=== PATIENT | female | born 1995 ===

== ENCOUNTER 2018-01-16 01:57 | Emergency (ER) | payer SELFPAY ==
[2018-01-16 03:04] LABS: BASO % 0.4 % (0.0-2.0); EOS # 0.3 K/uL (0.0-0.7); EOS % 2.9 % (0.0-4.0); HEMOGLOBIN 13.7 g/dL (11.0-16.0); LYMPH # 3.2 K/uL (1.0-4.3); LYMPH % 34.9 % (20.0-40.0); MEAN CELL VOLUME 89.9 fL (81.0-99.0); MEAN CORPUSCULAR HEMOGLOBIN 31.2 pg (27.0-31.0); MEAN CORPUSCULAR HGB CONC 34.7 g/dL (33.0-37.0); MEAN PLATELET VOLUME 7.8 fL (7.2-11.7); MONO # 0.5 K/uL (0.0-0.8); MONO % 5.7 % (0.0-10.0); NEUT # 5.1 K/uL (1.8-7.0); NEUT % 56.1 % (50.0-75.0); NRBC % 0.1 % (0.0-2.0); RBC 4.38 Mil/uL (3.80-5.20); WHITE BLOOD COUNT 9.1 K/uL (4.8-10.8)
[2018-01-16 03:12] LABS: ALB/GLOB RATIO 1.4 (1.0-2.1); ALBUMIN 4.7 g/dL (3.5-5.0); ALT/SGPT 20 U/L (9-52); AST/SGOT 21 U/L (14-36); BLOOD UREA NITROGEN 8 mg/dL (7-17); CALCIUM 9.5 mg/dl (8.6-10.4); GFR NON-AFRICAN AMERICAN > 60
[2018-01-16] MEDS ORDERED: Potassium Chloride 20 mEq ER Tab PO ONE ×3 (03:16→03:19)
--- NOTE | 2018-01-16 03:23 | C.PDOC ---
History Of Present Illness 22 year old female is brought to the ED by EMS for evaluation of apparent SOB, chest tightness. Patient reported to EMS she had an argument with her boyfriend at home. Patient was hyperventilating on EMS arrival however now states that she experienced SOB and chest pain while cleaning at home, patient admits to drinking only 1 beer. Patient reports PMHX of a questionable heart condition that she is unsure of, patient states [place] and nothing has been done. Patient is not taking any medications. Patient denies fever, chills, visual changes, headache, dizziness, weakness, numbness, palpitations, diaphoresis. No recent prolonged travel, no OCP use, no recent immobilization. Time Seen by Provider: 01/16/18 02:08 Chief Complaint (Nursing): Chest Pain History Per: Patient, EMS History/Exam Limitations: no limitations Onset/Duration Of Symptoms: Hrs Current Symptoms Are (Timing): Still Present Quality: Tightness Associated Symptoms: Dyspnea Recent travel outside of the [place]: No Additional History Per: Patient, EMS Past Medical History Reviewed: Historical Data, Nursing Documentation, Vital Signs Vital Signs: Last Vital Signs Temp 97.9 F 01/16/18 02:00 Pulse 116 H 01/16/18 02:00 Resp 20 01/16/18 02:00 BP 109/86 01/16/18 02:00 Pulse Ox 97 01/16/18 02:00 - Medical History PMH: No Chronic Diseases Surgical History: No Surg Hx Family History: States: Unknown Family Hx - Social History Hx Alcohol Use: Yes Hx Substance Use: No - Immunization History Hx Tetanus Toxoid Vaccination: No Hx Influenza Vaccination: No Hx Pneumococcal Vaccination: No Review Of Systems Constitutional: Negative for: Fever, Chills Cardiovascular: Positive for: Chest Pain. Negative for: Palpitations, Light Headedness Respiratory: Negative for: Shortness of Breath Gastrointestinal: Negative for: Nausea, Vomiting Skin: Negative for: Rash Neurological: Negative for: Weakness, Numbness, Headache, Dizziness Physical Exam - Physical Exam Appears: Non-toxic, No Acute Distress, Other (AOB) Skin: Normal Color, Warm, Dry Head: Atraumatic, Normacephalic Eye(s): bilateral: Normal Inspection, PERRL Neck: Normal ROM, Supple Chest: Symmetrical Cardiovascular: Rhythm Regular (tachycardic) Respiratory: Normal Breath Sounds, No Rales, No Rhonchi, No Wheezing Gastrointestinal/Abdominal: Soft, No Tenderness, No Guarding, No Rebound Extremity: Normal ROM, No Tenderness, No Swelling Neurological/Psych: Oriented x3, Normal Speech, Normal Cognition Gait: Steady ED Course And Treatment - Laboratory Results Result Diagrams: 01/16/18 03:01 01/16/18 03:01 ECG: Interpreted By Me, Viewed By Me ECG Rhythm: Sinus Tachycardia Interpretation Of ECG: no acute ST/T wave abnormalities Rate From EC (BPM) O2 Sat by Pulse Oximetry: 97 (ON RA) Pulse Ox Interpretation: Normal - Radiology CXR: Interpreted by Me, Viewed By Me CXR Interpretation: Yes: No Acute Disease. No: Infiltrates - CT Scan/US CT chest Other Rad Studies (CT/US): Read By Radiologist, Radiology Report Reviewed CT/US Interpretation: CTA OF THE CHEST WITH IV CONTRAST. CLINICAL HISTORY: Pain. TECHNIQUE: Axial and reformatted sagittal and coronal images of the chest obtained after bolus IV contrast administration. FINDINGS: Normal enhancement of the main pulmonary artery and right and left pulmonary arteries. Normal enhancement of the bilateral peripheral pulmonary arteries. There is no demonstrated pulmonary embolism. Normal thoracic aorta and visualized great vessels. There is no demonstrated aortic dissection. Normal heart and perica rdium. Normal mediastinum. Normal hilar regions. Normal visualized trachea and bronchi. The lungs are well expanded. Normal pulmonary parenchyma. Normal pleura. Normal chest wall structures. Normal osseous structures. Normal visualized upper abdomen. IMPRESSION: Normal CTA chest examination, without a demonstrated pulmonary embolism or arterial dissection. . Electronically signed on Jan 16, 2018 6:38:19 AM EDT by: Lincoln Long M.D., Certified by ABR, MSK, Neuroradiology Progress Note: Plan: - Labs. - EKG. - CXR. - Potassium PO. Patient removed her IV access so potassium was replaced PO. Pt with elevated dimer, chest pain, SOB, will order CTA chest. Labs and CT ordered, K 2.9 replaced. CTA negative for PE, pt improved, VSS, no distress. Advised fruits high in K+. 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 - Scribe Statement The provider has reviewed the documentation as recorded by the Scribe Russel Saravia All medical record entries made by the Scribe were at my direction and personally dictated by me. I have reviewed the chart and agree that the record accurately reflects my personal performance of the history, physical exam, medical decision making, and the department course for this patient. I have also personally directed, reviewed, and agree with the discharge instructions and disposition.
[2018-01-16 05:14] VITALS: PULSE 97
[2018-01-16] MEDS ORDERED: Iodixanol 320 MG/ML 100 ML BOTTLE IV ONE (05:41)
[2018-01-16 06:16] VITALS: BP 108/71; RESP 16; TEMP 97.8
[2018-01-16 06:40] VITALS: O2SAT 97
--- NOTE | 2018-01-16 09:17 | RAD ---
Date of service: 01/16/2018 PROCEDURE: CHEST RADIOGRAPH, 1 VIEW HISTORY: chest pain COMPARISON: None available. FINDINGS: LUNGS: Clear. PLEURA: No pneumothorax or pleural fluid seen. CARDIOVASCULAR: Normal. OSSEOUS STRUCTURES: No significant abnormalities. VISUALIZED UPPER ABDOMEN: Normal. OTHER FINDINGS: None. IMPRESSION: No active disease.
--- NOTE | 2018-01-16 10:03 | CT ---
Date of service: 01/16/2018 PROCEDURE: CT Chest with contrast (Pulmonary Angiogram) HISTORY: SOB, elevated dimer, rule out PE. COMPARISON: None available. TECHNIQUE: Axial computed tomography images were obtained of the chest in the pulmonary arterial phase of enhancement. Coronal and sagittal reformatted images were created and reviewed. Intravenous contrast dose: 100 cc Visipaque 320 Radiation dose: Total exam DLP = 210.15 mGy-cm. This CT exam was performed using one or more of the following dose reduction techniques: Automated exposure control, adjustment of the mA and/or kV according to patient size, and/or use of iterative reconstruction technique. FINDINGS: PULMONARY ARTERIES: Unremarkable. No pulmonary embolism. AORTA: No acute findings. No thoracic aortic aneurysm. LUNGS: Unremarkable. No mass or pulmonary consolidation. There is a small approximately 4.4 mm elliptical shaped pleural-based nodular density posterolateral convexity superior aspect right lower lobe of probably postinflammatory in nature. PLEURAL SPACES: Unremarkable. No effusion or pneumothorax. HEART: Unremarkable. No cardiomegaly. No significant pericardial effusion. LYMPH NODES: No lymphadenopathy. There is a small hiatal hernia. BONES, CHEST WALL: Unremarkable. No fracture or destructive lesion OTHER FINDINGS: Unremarkable. IMPRESSION: No evidence central of acute central pulmonary embolus.. Small 4.4 mm semi lunar shaped nodular pleural-based nodular density right lower lobe Note that preliminary report provided by overnight radiology service
--- NOTE | 2018-01-18 21:01 | CARD ---
APPROVED REPORT Date of service: 01/16/2018 EKG Measurement Heart [id number] <Conclusion> Sinus tachycardia Rightward axis Borderline ECG
== END 2018-01-16 06:58 | disposition home or self-care (01) ==
LOC: C.ER 01:57
DX: R06.00 Dyspnea, unspecified (principal); E87.6 Hypokalemia
CPT/HCPCS: 71045; 71275; 80053; 84484; 84703; 85025; 85378; 93005; 99285; G0480; Q9967